=== PATIENT | male | born 1945 | race Caucasian/White ===

== ENCOUNTER 2017-12-27 13:18 | Emergency (ER) | payer MEDICARE ==
[2017-12-27 14:00] VITALS: RESP 18; TEMP 97.7
--- NOTE | 2017-12-27 14:04 | ED ---
Wound/Laceration HPI - General Chief Complaint: Wound/Laceration Stated Complaint: Head Lac from hockey puck Time Seen by Provider: 12/27/17 14:04 Source: patient Mode of arrival: wheelchair Limitations: no limitations - History of Present Illness Initial Comments: 72-year-old male past medical history of hypertension and diabetes presenting for chief complaint of laceration of the scalp. Patient states he is at his grandson's hockey game when a puck flew over the neck and glass hitting him directly on the top of his head. Patient denies any use of anticoagulants. Patient denies loss of consciousness, headache, dizziness, visual changes, paresthesias, numbness, tingling or muscle weakness of the upper or lower extremities. Patient only admits to pain at the site of the laceration. Patient was concerned he needed sutures and presented for evaluation and at the emergency department today. Her main of ROS negative patient denies any recent fever, chills, shortness of breath, chest pain, back pain, abdominal pain, nausea or vomiting, numbness or tingling, dysuria or hematuria, constipation or diarrhea, headaches or visual changes, or any other complaints. Patient appears well upon arrival. Patient is ambulating without difficulty. Vital signs stable. - Related Data Home Medications Medication Instructions Recorded Confirmed Aspirin 81 mg PO DAILY 12/27/17 12/27/17 Benazepril [Lotensin] 5 mg PO DAILY 12/27/17 12/27/17 Carvedilol 25 mg PO BID 12/27/17 12/27/17 Indapamide [Lozol] 2.5 mg PO DAILY 12/27/17 12/27/17 Insulin Glargine [Lantus] 26 unit SQ HS 12/27/17 12/27/17 Latanoprost Ophth [Xalatan 0.005%] 1 drop .ROUTE HS 12/27/17 12/27/17 Nateglinide 120 mg PO TID 12/27/17 12/27/17 Rosuvastatin [Crestor] 20 mg PO HS 12/27/17 12/27/17 Vits A,C,E/Lutein/Minerals 1 each PO DAILY 12/27/17 12/27/17 [Ocuvite with Lutein Tablet] metFORMIN HCL [Glucophage] 500 mg PO BID 12/27/17 12/27/17 Allergies Allergy/AdvReac Type Severity Reaction Status Date / Time No Known Allergies Allergy Verified 12/27/17 14:00 Review of Systems ROS Statement: Those systems with pertinent positive or pertinent negative responses have been documented in the HPI. ROS Other: All systems not noted in ROS Statement are negative. Constitutional: Denies: fever, chills, night sweats Eyes: Denies: vision change ENT: Denies: hearing loss Respiratory: Denies: cough, dyspnea, wheezes, hemoptysis, stridor Cardiovascular: Denies: chest pain, palpitations, dyspnea on exertion Endocrine: Denies: fatigue Gastrointestinal: Denies: abdominal pain, nausea, diarrhea Genitourinary: Denies: urgency, dysuria Musculoskeletal: Denies: back pain Neurological: Denies: headache, weakness, numbness, paresthesias, confusion, abnormal gait Past Medical History Past Medical History: Diabetes Mellitus, Hyperlipidemia, Hypertension History of Any Multi-Drug Resistant Organisms: None Reported Past Surgical History: Back Surgery, Cholecystectomy Additional Past Surgical History / Comment(s): kidney stone removal, lumbar back surgery Past Psychological History: No Psychological Hx Reported Smoking Status: Never smoker Past Alcohol Use History: None Reported Past Drug Use History: None Reported General Exam - General Exam Comments Initial Comments: General: The patient is awake and alert, in no distress, and does not appear acutely ill. Eye: +3mm pupils are equal, round and reactive to light, extra-ocular movements are intact. No nystagmus. There is normal conjunctiva bilaterally. No signs of icterus. Exam of the external auditory canal and tympanic membrane within normal limits bilaterally. Ears, nose, mouth and throat: There are moist mucous membranes and no oral lesions. Neck: The neck is supple, there is no tenderness or JVD. Cardiovascular: There is a regular rate and rhythm. No murmur, rub or gallop is appreciated. Respiratory: Lungs are clear to auscultation, respirations are non-labored, breath sounds are equal. No wheezes, stridor, rales, or rhonchi. Musculoskeletal: Normal ROM, no tenderness. Strength 5/5 of the UE or LE equally b/l. Sensation intact. Radial pulses equal bilaterally 2+. Neurological: A&O x 3. CN II-XII intact, There are no obvious motor or sensory deficits. Coordination appears grossly intact. Speech is normal. Skin: Skin is warm and dry and no rashes. There is a a 3cm linear laceration of the left parietal portion of scalp near midline, very mild active bleeding. No exposure of underlying structures. No evidence of foreign body. No myrick or racoon sign.just patient of area surrounding laceration. No palpable hematoma. Psychiatric: Cooperative, appropriate mood & affect, normal judgment. Limitations: no limitations Course Vital Signs 12/27/17 12/27/17 13:57 16:10 Temperature 97.7 F Pulse Rate 57 L 66 Respiratory 18 18 Rate Blood Pressure 189/82 189/84 O2 Sat by Pulse 96 96 Oximetry Procedures - Laceration Laceration #1 Consent Obtained: verbal consent Time Out Performed: Yes Indication: laceration Site: scalp Size (cm): 3 Description: linear Depth: simple, single layer Anesthetic Used: lidocaine 1% Anesthesia Technique: local infiltration Amount (mls): 10 Pre-repair: wound explored, irrigated extensively, deep structures intact Type of Sutures: other (NAVI) Number of Sutures: 5 (NAVI) Patient Tolerated Procedure: well, no complications Medical Decision Making - Medical Decision Making 3cm linear laceration of scalp. CT obtained due to blunt trauma (-) for intracranial process. Wound irrigated extensively/explored. Wound edges approximated well with 5 navi, pt tolerated procedure well. No focal neurological deficits on exam or complaints of headache or other associated symptoms. Case discussed with Dr. Davis at this time we feel pt is stable for discharge with staple removal in next 5-7 days. Return parameters discussed in detail with patient. Patient verbalizes understanding. Patient discharged in stable condition. Disposition Clinical Impression: Scalp laceration Disposition: HOME SELF-CARE Condition: Good Instructions: Staple Care (ED) Additional Instructions: Please use medication as discussed. Please follow-up with family doctor for suture removal in the next 5-7days. Please return to emergency room if the symptoms increase or worsen or for any other concerns. Is patient prescribed a controlled substance at d/c from ED?: No Referrals: Nonstaff,Physician [Primary Care Provider] - 1-2 days Time of Disposition: 15:59
[2017-12-27] MEDS ORDERED: DIPH,PERTUS(ACELL)TETVAC-LF 0.5 ML VIAL IM ONE (14:13)
[2017-12-27] MEDS ORDERED: LIDOCAINE 1% INJ 10MG/ML (20 ML MDV) SQ ONE (14:13)
--- NOTE | 2017-12-27 15:04 | CT ---
EXAMINATION TYPE: CT brain wo con DATE OF EXAM: 12/27/2017 COMPARISON: None HISTORY: 72-year-old male with pain TECHNIQUE: Examination was done in axial plane without intravenous contrast. Coronal and sagittal r econstructions performed. CT DLP: 978.1 mGycm Automated exposure control for dose reduction was used. FINDINGS: There is no evidence of acute intracranial hemorrhage, acute ischemic changes, mass, mass-effect, or extra-axial fluid collection. There is no effacement of cerebral sulci or basal subarachnoid cister ns. There is no hydrocephalus. There is no midline shift. Zendejas-white matter distinction is preserv ed. There is scalp laceration along the left paramedian vertex. No underlying calvarial fracture. Nonspec ific sclerotic focus anterior left paramedian frontal bone probably a bone island. No other sclerotic foci are seen. Atherosclerotic calcifications within the carotid siphons. Mild patchy white matter hypodensities particularly on the right congestive changes of chronic small vessel ischemic disease. Mild mucosal thickening right maxillary sinus floor. Mastoid air cells well pneumatized. Orbits and g lobes are intact. IMPRESSION: Scalp lacerations along the left paramedian vertex. No acute intracranial abnormality seen. 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
[2017-12-27 16:18] VITALS: BP 189/84; PULSE 66
== END 2017-12-27 16:10 | disposition home or self-care (01) ==
LOC: EC 13:18
DX: S01.01XA Laceration without foreign body of scalp, initial encounter (principal); E11.9 Type 2 diabetes mellitus without complications; E78.5 Hyperlipidemia, unspecified; I10 Essential (primary) hypertension; Z79.82 Long term (current) use of aspirin; Z79.4 Long term (current) use of insulin; Z79.899 Other long term (current) drug therapy; Z23 Encounter for immunization; W21.220A Struck by ice hockey puck, initial encounter; Y93.22 Activity, ice hockey
CPT/HCPCS: 70450; 90715; 99283; 12002; 90471; J2001